=== PATIENT | male | born 1995 | race Caucasian/White ===

== ENCOUNTER 2016-08-16 12:10 | Inpatient (IN) | payer BC ==
[2016-08-16 13:15] VITALS: BMI 26.6
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
[2016-08-16] MEDS ORDERED: guaiFENesin/D-METHORPHAN HB 10 ML UNIT-DOSE CUPS PO PRN (17:25)
[2016-08-16] MEDS ORDERED: MAGNESIUM CITRATE 300 ML BOTTLE PO PRN (17:25)
[2016-08-16] MEDS ORDERED: LOPERAMIDE HCL 2 MG CAPSULE PO PRN (17:25)
[2016-08-16] MEDS ORDERED: NICOTINE POLACRILEX 2 MG GUM BC PRN (17:25)
[2016-08-16] MEDS ORDERED: MAG HYDROX/AL HYDROX/SIMETH 30 ML UNIT-DOSE CUP PO PRN (17:25)
[2016-08-16] MEDS ORDERED: MENTHOL/PHENOL 1 EACH UD MM PRN (17:25)
[2016-08-16] MEDS ORDERED: P-EPHED 60MG/TRIPROLIDI 2.5MG TABLET PO PRN (17:25)
[2016-08-16] MEDS ORDERED: MAGNESIUM HYDROX 2400MG/30ML ORAL SUSPENSION 30 ML CUP PO PRN (17:25)
[2016-08-16] MEDS ORDERED: METHADONE HCL 10 MG TABLET (FOR DETOX USE ONLY) PO ONE ×2 (17:45→23:00)
[2016-08-16] MEDS: diazePAM 5 MG TABLET PO PRN (18:31)
[2016-08-16] MEDS: IBUPROFEN 400 MG TABLET (FP) PO PRN (18:35)
[2016-08-17] MEDS: diazePAM 5 MG TABLET PO PRN ×3 (06:16→18:41)
[2016-08-17] MEDS ORDERED: METHADONE HCL 10 MG TABLET (FOR DETOX USE ONLY) PO ONE (10:00)
[2016-08-17 10:18] LABS: MCH 30.8 pg (25.7-33.7); MCHC 34.6 g/dl (32.0-35.9); MEAN CELL VOLUME 88.9 fl (80-96); MEAN PLT VOLUME 10.3 fl (7.5-11.1); PLATELET COUNT 265 K/MM3 (134-434); RDW 13.7 % (11.9-15.9); WHITE BLOOD COUNT 6.6 K/mm3 (4.0-10.0)
[2016-08-17] MEDS: PRENATAL VITAMINS W/ FOLIC ACID TABLET (FP) PO SCH (10:21)
[2016-08-17] MEDS: NICOTINE 7 MG/24 HOURS TOPICAL PATCH TD SCH (10:25)
[2016-08-17 10:49] LABS: ALBUMIN 4.6 g/dl (3.4-5.0); ALK PHOS 91 U/L (45-117); ANION GAP 9 (8-16); BILIRUBIN,TOTAL 0.3 mg/dL (0.2-1.0); CALCIUM 9.7 mg/dL (8.5-10.1); CO2 25 mmol/L (21-32); CREATININE 1.1 mg/dL (0.7-1.3); GLUCOSE,RANDOM 104 mg/dL (74-106); SGOT/AST 17 U/L (15-37); SGPT/ALT 33 U/L (12-78); TOT PROT 7.5 g/dl (6.4-8.2)
--- NOTE | 2016-08-17 10:51 | PN ---
[facility] COWS - Scale Resting Pulse: 0= [place] 80 or Below Sweatin=Flushed/Facial Moisture Restless Observation: 1= Difficult to Sit Still Pupil Size: 0= Normal to Room Light Bone or Joint Aches: 2= Severe Diffuse Aches Runny Nose/ Eye Tearin= Runny Nose/Eyes GI Upset > 30mins: 0= None Tremor Observation of Outstretched Hands: 1= Tremor Bruno, Not Seen Yawning Observation: 2= >3x During Session Anxiety or Irritability: 2=Irritable/Anxious Goose Flesh Skin: 0=Smooth Skin COWS Score: 12 [facility] Progress Note (SOAP) Subjective: sweats shakes interrupted sleep headache Objective: 08/17/16 10:48 Vital Signs Temperature 97.7 F 08/17/16 10:10 Pulse Rate 67 08/17/16 10:10 Respiratory Rate 18 08/17/16 10:10 Blood Pressure 141/52 08/17/16 10:10 O2 Sat by Pulse Oximetry (%) Laboratory Tests 08/17/16 08/17/16 06:00 06:00 WBC 6.6 RBC 4.84 Hgb 14.9 Hct 43.0 MCV 88.9 MCHC 34.6 RDW 13.7 Plt Count 265 MPV 10.3 Sodium 142 Potassium 4.3 Chloride 108 H labs pending awake/alert ambulating no acute distress Assessment: 08/17/16 10:49 withdrawal sx Plan: continue detox increase fluids labs pending motrin/tylenol prn
[2016-08-17 10:59] LABS: SICKLE CELL SCREEN NEGATIVE (NEGATIVE)
[2016-08-17 11:44] LABS: HIV 1 & 2 AB NEGATIVE; HIV 1 AGp24 NEGATIVE
[2016-08-17] MEDS ORDERED: TRIMETHOBENZAMIDE HCL 200MG/2ML INJ IM ONE (12:35)
[2016-08-17] MEDS ORDERED: COLLOIDAL OATMEAL 1 BAR EACH TP PRN (12:39)
[2016-08-17 20:12] LABS: URINE APPEARANCE CLEAR; URINE BILIRUBIN NEGATIVE (NEGATIVE); URINE BLOOD NEGATIVE (NEGATIVE); URINE COLOR YELLOW; URINE GLUCOSE (UA) NEGATIVE (NEGATIVE); URINE KETONE NEGATIVE (NEGATIVE); URINE LEUK ESTERASE NEGATIVE (NEGATIVE); URINE NITRITE NEGATIVE (NEGATIVE); URINE PROTEIN NEGATIVE (NEGATIVE); URINE UROBILINOGEN NEGATIVE E.U./dl (0.2-1.0)
[2016-08-17] MEDS: THIAMINE HCL 100 MG TABLET (FP) PO SCH (22:34)
[2016-08-17] MEDS: hydrOXYzine PAMOATE 50 MG CAPSULE (FP) PO PRN (22:34)
[2016-08-17] MEDS ORDERED: PENICILLIN G BENZATHINE 2,400,000 UNIT/4 ML PFS IM ONE (23:02)
--- NOTE | 2016-08-17 23:04 | PN ---
[facility] Progress Note Note: rpr 1:2 MHA reactive patient states that he had never been treated for syphilis with penicillin, no allergy to penicillin penicillin B 2.4 IM x 1 continue detox
[2016-08-18] MEDS: diazePAM 5 MG TABLET PO PRN ×3 (08:04→20:08)
[2016-08-18] MEDS: IBUPROFEN 400 MG TABLET (FP) PO PRN ×3 (08:05→22:35)
[2016-08-18] MEDS ORDERED: ONDANSETRON *ODT* 4 MG TABLET SL PRN (08:05)
[2016-08-18] MEDS ORDERED: METHADONE HCL 5 MG TABLET (FOR DETOX USE ONLY) PO ONE (10:00)
--- NOTE | 2016-08-18 10:43 | PN ---
S COWS - Scale Resting Pulse: 0= [place] 80 or Below Sweatin=Flushed/Facial Moisture Restless Observation: 1= Difficult to Sit Still Pupil Size: 2= Moderately Dilated Bone or Joint Aches: 0= None Runny Nose/ Eye Tearin= Runny Nose/Eyes GI Upset > 30mins: 1= Stomach Cramp Tremor Observation of Outstretched Hands: 2= Slight Tremor Visible Yawning Observation: 0= None Anxiety or Irritability: 2=Irritable/Anxious Goose Flesh Skin: 0=Smooth Skin COWS Score: 12 [facility] Progress Note (SOAP) Objective: 08/18/16 10:43 Laboratory Tests 08/16/16 08/17/16 08/17/16 08:00 06:00 06:00 WBC 6.6 RBC 4.84 Hgb 14.9 Hct 43.0 MCV 88.9 MCHC 34.6 RDW 13.7 Plt Count 265 MPV 10.3 Sickle Cell Screen Negative Sodium 142 Potassium 4.3 Chloride 108 H Carbon Dioxide 25 Anion Gap 9 BUN 13 Creatinine 1.1 Creat Clearance w eGFR > 60 Random Glucose 104 Calcium 9.7 Total Bilirubin 0.3 AST 17 ALT 33 Alkaline Phosphatase 91 Total Protein 7.5 Albumin 4.6 Urine Color Urine Appearance Urine pH Ur Specific [place] Urine Protein Urine Glucose (UA) Urine Ketones Urine Blood Urine Nitrite Urine Bilirubin Urine Urobilinogen Ur Leukocyte Esterase RPR Titer T.pallidum Ab (MHA) HIV 1&2 Antibody Screen Negative HIV P24 Antigen Negative 08/17/16 08/17/16 06:00 19:53 WBC RBC Hgb Hct MCV MCHC RDW Plt Count MPV Sickle Cell Screen Sodium Potassium Chloride Carbon Dioxide Anion Gap BUN Creatinine Creat Clearance w eGFR Random Glucose Calcium Total Bilirubin AST ALT Alkaline Phosphatase Total Protein Albumin Urine Color Yellow Urine Appearance Clear Urine pH 5.0 Ur Specific [place] 1.024 Urine Protein Negative Urine Glucose (UA) Negative Urine Ketones Negative Urine Blood Negative Urine Nitrite Negative Urine Bilirubin Negative Urine Urobilinogen Negative Ur Leukocyte Esterase Negative RPR Titer Reactive 1:2 H T.pallidum Ab (MHA) Reactive HIV 1&2 Antibody Screen HIV P24 Antigen Vital Signs - 24 hr 08/17/16 08/17/16 08/17/16 14:51 18:09 22:34 Temperature 97.7 F 97.7 F 97.7 F Pulse Rate 80 71 86 Respiratory 16 18 18 Rate Blood Pressure 147/88 117/53 118/65 08/18/16 08/18/16 08/18/16 00:30 06:00 10:20 Temperature 98.1 F 98.6 F Pulse Rate 62 97 H Respiratory 18 18 20 Rate Blood Pressure 139/59 136/72 Assessment: 08/18/16 10:43 ongoing withdrawal Plan: continue detox protocol
[2016-08-18] MEDS: NICOTINE 7 MG/24 HOURS TOPICAL PATCH TD SCH ×2 (12:11→17:01)
[2016-08-18] MEDS: PRENATAL VITAMINS W/ FOLIC ACID TABLET (FP) PO SCH (12:16)
--- NOTE | 2016-08-18 13:27 | PN ---
S Progress Note Note: pt states he is aware of syphilis lab result; pt states he received first two doses at his PMD and is due for last dose. His final dose given today by RN. pt was advised to consult with his PMD for follow up.
[2016-08-18] MEDS: THIAMINE HCL 100 MG TABLET (FP) PO SCH ×2 (17:01→22:35)
[2016-08-18] MEDS: ACETAMINOPHEN 325 MG TABLET (FP) PO PRN (17:05)
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
[2016-08-18] MEDS: diphenhydrAMINE HCL 50 MG CAPSULE PO PRN (22:35)
[2016-08-19] MEDS: diazePAM 5 MG TABLET PO PRN ×2 (01:51→06:21)
[2016-08-19] MEDS: diphenhydrAMINE HCL 50 MG CAPSULE PO PRN (01:54)
[2016-08-19] MEDS: NICOTINE 7 MG/24 HOURS TOPICAL PATCH TD SCH (09:40)
[2016-08-19] MEDS: PRENATAL VITAMINS W/ FOLIC ACID TABLET (FP) PO SCH (09:40)
[2016-08-19] MEDS: IBUPROFEN 400 MG TABLET (FP) PO PRN ×2 (09:44→15:43)
[2016-08-19] MEDS ORDERED: METHADONE HCL 5 MG TABLET (FOR DETOX USE ONLY) PO ONE (10:00)
--- NOTE | 2016-08-19 12:09 | PN ---
S Progress Note (SOAP) Subjective: ALERT,IRRITABLE,ANXIOUS,INTERRUPTED SLEEP,PAIN IN THE BODY AND BACK Objective: 08/19/16 12:04 Vital Signs Temperature 98.1 F 08/19/16 09:42 Pulse Rate 81 08/19/16 09:42 Respiratory Rate 18 08/19/16 09:42 Blood Pressure 130/75 08/19/16 09:42 O2 Sat by Pulse Oximetry (%) 08/19/16 12:05 Assessment: 08/19/16 12:06 WITHDRAWAL SYMPTOM Plan: CONTINUE DETOX,ABIMBOLA REMOVED ,4 ABIMBOLA,WOUND HEALED WELL,
[2016-08-19] MEDS: ACETAMINOPHEN 325 MG TABLET (FP) PO PRN (14:13)
[2016-08-19] MEDS: hydrOXYzine PAMOATE 50 MG CAPSULE (FP) PO PRN ×2 (15:45→21:56)
[2016-08-19] MEDS: THIAMINE HCL 100 MG TABLET (FP) PO SCH (21:56)
[2016-08-20] MEDS ORDERED: METHADONE HCL 10 MG TABLET (FOR DETOX USE ONLY) PO ONE (10:00)
[2016-08-20] MEDS: NICOTINE 7 MG/24 HOURS TOPICAL PATCH TD SCH (10:45)
[2016-08-20] MEDS: hydrOXYzine PAMOATE 50 MG CAPSULE (FP) PO PRN ×3 (10:47→21:40)
[2016-08-20] MEDS: PRENATAL VITAMINS W/ FOLIC ACID TABLET (FP) PO SCH (10:47)
--- NOTE | 2016-08-20 12:55 | PN ---
S Progress Note (SOAP) Subjective: ALERT,IRRITABLE,ANXIOUS,INTERRUPTED SLEEP, Objective: 08/20/16 12:54 Vital Signs Temperature 98.2 F 08/20/16 10:27 Pulse Rate 84 08/20/16 10:27 Respiratory Rate 18 08/20/16 10:27 Blood Pressure 127/71 08/20/16 10:27 O2 Sat by Pulse Oximetry (%) Assessment: 08/20/16 12:54 WITHDRAWAL SYMPTOM Plan: CONTINUE DETOX,DISCHARGE IN AM
[2016-08-20] MEDS: IBUPROFEN 400 MG TABLET (FP) PO PRN (14:57)
[2016-08-20] MEDS: THIAMINE HCL 100 MG TABLET (FP) PO SCH (21:40)
[2016-08-20 21:46] VITALS: TEMP 97.7
[2016-08-21] MEDS ORDERED: METHADONE HCL 5 MG TABLET (FOR DETOX USE ONLY) PO ONE (06:00)
[2016-08-21 06:33] VITALS: BP 110/70; PULSE 67
--- NOTE | 2016-08-21 09:23 | DS ---
[facility] Detox Discharge Summary Admission Date: 08/16/16 Discharge Date: 08/21/16 - History Present History: Cannabis Dependence, Cocaine Dependence, Opioid Dependence - Physical Exam Results Vital Signs: Vital Signs Temperature 97.7 F 08/21/16 06:00 Pulse Rate 67 08/21/16 06:00 Respiratory Rate 18 08/21/16 06:00 Blood Pressure 110/70 08/21/16 06:00 O2 Sat by Pulse Oximetry (%) - Treatment Hospital Course: Detox Protocol Followed, Detoxed Safely, Responded well, Discharged Condition Good, Rehab Referral Accepted - Medication Discharge Medications: Ambulatory Orders NK [No Known Home Medication] 08/16/16 - Diagnosis (1) Cannabis dependence, uncomplicated Current Visit: Yes Status: Chronic (2) Cocaine dependence, uncomplicated Current Visit: Yes Status: Chronic (3) Laceration of scalp Current Visit: Yes Status: Acute Qualifiers: Encounter type: subsequent encounter Qualified Code(s): S01.01XD - Laceration without foreign body of scalp, subsequent encounter (4) Opioid dependence with withdrawal Current Visit: Yes Status: Chronic - AMA Did Patient Leave Against Medical Advice: No
== END 2016-08-21 09:53 | disposition home or self-care (01) | DRG 773 ==
LOC: YASAS 12:10 → Y6N 16:37
PROVIDERS: ADMIT Internal Medicine Addiction Medicine; ATTEND Internal Medicine Addiction Medicine
PROC: HZ2ZZZZ Detoxification Services for Substance Abuse Treatment (ICD-10-PCS; principal; 2016-08-16)
DX: F11.23 Opioid dependence with withdrawal (principal); F14.20 Cocaine dependence, uncomplicated; F12.20 Cannabis dependence, uncomplicated; A53.9 Syphilis, unspecified; Z72.0 Tobacco use; S01.01XD Laceration without foreign body of scalp, subsequent encounter; Y04.0XXD Assault by unarmed brawl or fight, subsequent encounter
CPT/HCPCS: 36415; 80053; 81003; 85027; 85660; 86593; 86780; 87389; 93005; 93010